=== PATIENT | female | born 1995 | race Caucasian/White ===

== ENCOUNTER 2017-07-24 23:02 | Emergency (ER) | payer OTHER, SELFPAY ==
[2017-07-24 23:12] VITALS: BP 130/66; PULSE 87; RESP 20; TEMP 36.8; O2SAT 99; BMI 28.8
--- NOTE | 2017-07-24 23:29 | PC.NURSE ---
heart tones 148bpm.
[2017-07-24 23:30] LABS: Microscopic, Urine URINE MICROSCOPIC (MICROSCOPIC)
[2017-07-24 23:34] LABS: Appearance,Urine CLEAR (Clear); Bilirubin,Urine Negative (Negative); Blood, Urine TRACE-I (Negative); Color,Urine YELLOW (Yellow); Glucose,Urine (UA) Negative (Negative); Ketones,Urine TRACE (Negative); Leukocyte Esterase,Urine Negative (Negative); Nitrate,Urine Negative (Negative); Protein,Urine Negative (Negative); Specific Gravity, Urine >= 1.030 (1.005-1.030); Urobilinogen,Urine 0.2 EU/dl (0.2)
[2017-07-24 23:35] LABS: Basophils % 0.2 % (0.1-2.0); Eosinophils # 0.1 K/mm3 (0.0-0.4); Eosinophils % 1.3 % (0.1-12.0); Hemoglobin 11.8 g/dL (12.2-16.2); Lymphocytes # 2.2 K/mm3 (0.7-4.5); Lymphocytes % 21.8 K/mm3 (10-50); Mean Corpuscular HGB Conc 33.6 g/dL (31.8-35.4); Mean Corpuscular Hemoglobin 28.5 pg (27.0-31.2); Mean Corpuscular Volume 84.6 fl (81-99); Mean Platelet Volume 8.7 fl (7.4-10.4); Monocytes # 0.6 K/mm3 (0.1-1.0); Monocytes % 5.8 % (1.7-9.3); Neutrophils % 70.9 % (37.0-80.0); Platelet Count 260 K/mm3 (142-424); Red Blood Count 4.13 M/mm3 (4.20-5.40); Red Cell Distribution Width 13.5 % (11.5-17.5); White Blood Count 9.9 K/mm3 (4.5-13.0)
[2017-07-25 00:07] LABS: Alanine Aminotransferase 26 U/L (12-78); Albumin Level 2.9 gm/dL (3.4-5.0); Albumin/Globulin Ratio 0.7 (1.1-1.8); Alkaline Phosphatase 61 U/L (46-116); Anion Gap 13.8 mEq/L (5-15); Aspartate Amino Transferase 17 U/L (15-37); Bilirubin,Total 0.2 mg/dL (0.2-1.0); Blood Urea Nitrogen 6 mg/dL (7-18); Calcium 8.9 mg/dL (8.5-10.1); Carbon Dioxide 22 mmol/L (21.0-32.0); Chloride 103 mmol/L (98-107); Creatinine Clearance Estimated 209 mL/min (0-300); Creatinine,Serum 0.52 mg/dL (0.55-1.02); Estimated Glomerular Filt Rate 152 ml/min (>60); GFR (African American) 184 ML/MIN (>60); Globulin 4.3 gm/dl (1.3-3.2); Glucose 91 mg/dL (74-106); Potassium 3.8 mmoL/L (3.5-5.1); Sodium 135 mmol/L (136-145); Total Protein,Serum 7.2 gm/dL (6.4-8.2)
[2017-07-25 00:13] LABS: HCG,Quantitative 23028 mIU/mL
--- NOTE | 2017-07-25 00:53 | HMH.EDPREG ---
ED Disposition Clinical Impression: Qualifiers: Weeks of gestation: 19 weeks Qualified Code(s): Z3A.19 - 19 weeks gestation of Disposition: Home, Self-Care Condition on Discharge: Good Instructions: DI for -- Discomforts and Remedies Additional Instructions: call ob this am - Critical Care Critical Care Time: No Attestation: On 07/24/17, the high probability of a clinically significant, sudden or life threatening deterioration of the following system(s) required my full and direct attention, intervention and personal management. The time I documented below is in addition to time spent performing reported procedures but includes the following listed in this critical care notation. Medical Decision Making - Medical Records Medical records reviewed: Yes: I reviewed the patient's medical records. - Rubén Inquiry Pt receiving controlled substance: No Vital Signs: 07/24/17 23:12 Temperature 98.2 F Temperature Source Oral Pulse Rate [Right Radial] 87 Respiratory Rate 20 Blood Pressure [Right Arm] 130/66 Blood Pressure Mean [Right Arm] 87 02 Sat by Pulse Oximetry 99 - Lab Data Lab results reviewed: Yes: I reviewed the patient's lab results. Lab Results 07/24/17 23:10: Urine Color Yellow, Urine Appearance Clear, Urine pH 6.0, Ur Specific [place] >= 1.030, Urine Protein Negative, Urine Glucose (UA) Negative, Urine Ketones Trace, Urine Blood Trace-i, Urine Nitrate Negative, Urine Bilirubin Negative, Urine Urobilinogen 0.2, Ur Leukocyte Esterase Negative 07/24/17 23:10: WBC 9.9, RBC 4.13 L, Hgb 11.8 L, Hct 35.0 L, MCV 84.6, MCH 28.5, MCHC 33.6, RDW 13.5, Plt Count 260, MPV 8.7, Neut % (Auto) 70.9, Lymph % (Auto) 21.8, [place] % (Auto) 5.8, Eos % (Auto) 1.3, Baso % (Auto) 0.2, Neut # (Auto) 7.0, Lymph # (Auto) 2.2, [place] # (Auto) 0.6, Eos # (Auto) 0.1, Baso # (Auto) 0.0 07/24/17 23:10: Sodium 135 L, Potassium 3.8, Chloride 103, Carbon Dioxide 22, Anion Gap 13.8, BUN 6 L, Creatinine 0.52 L, Estimated Creat Clear 209, Estimated GFR 152, Est GFR ( Amer) 184, Glucose 91, Calcium 8.9, Total Bilirubin 0.2, AST 17, ALT 26, Alkaline Phosphatase 61, Total Protein 7.2, Albumin 2.9 L, Globulin 4.3 H, Albumin/Globulin Ratio 0.7 L, HCG, Quant [id number] H 07/24/17 23:50: Blood Type A Positive Result diagrams: 07/24/17 23:10 07/24/17 23:10 Orders (Tests/Meds): ORDERS Category Date Time Status Urinalysis and Microscopic Stat Lab 07/24/17 23:10 Results - Physician Consults Physician Consulted: candis Reason -: Pt condition HPI - General Chief complaint: Back Pain/Injury Stated complaint: 19 WK Preg, Pain in right and back Time Seen by Provider: 07/25/17 00:53 Mode of Arrival: Family Vehicle Limitations: No Limitations Description of Symptoms (Recalled from ER Triage Doc. by RN): presents with c/o bilateral side and mid lower back pains. pt states she is 19 weeks and she hasnt felt the baby move very much. pt sees dr. gonzalez and has an ultrasound scheduled in a few days. pt states she just wants to check on her baby. denies dysuria, n/v/d. - History of Present Illness HPI Narrative: pt with bilat abd pain with no vag bleeding which started in the last few days MD Complaint: abdominal pain Onset (ago): day(s) Consistency: intermittent Location: pelvis, abdomen Severity: moderate Vaginal discharge: none Vaginal bleeding: none : yes Date of Last Menstrual Period: unknown care: followed by OB - Related Data : 2 Para: 0 Ab: 1 Allergies Allergy/AdvReac Type Severity Reaction Status Date / Time Penicillins Allergy Verified 07/24/17 23:18 [facility] History I have reviewed the patient's past medical history: Yes Medical History: Denies:: Cancer, Diabetes Mellitus Type 1, Diabetes Mellitus Type 2, MRSA Amputation: No Fractures: No - Social History Smoking Status: Former smoker Alcohol Intake: never - Psy
--- NOTE | 2017-07-25 01:00 | ED_ITS ---
ED Disposition Clinical Impression: Qualifiers: Weeks of gestation: 19 weeks Qualified Code(s): Z3A.19 - 19 weeks gestation of Disposition: Home, Self-Care Condition on Discharge: Good Instructions: DI for -- Discomforts and Remedies Additional Instructions: call ob this am - Critical Care Critical Care Time: No Attestation: On 07/24/17, the high probability of a clinically significant, sudden or life threatening deterioration of the following system(s) required my full and direct attention, intervention and personal management. The time I documented below is in addition to time spent performing reported procedures but includes the following listed in this critical care notation. Medical Decision Making - Medical Records Medical records reviewed: Yes: I reviewed the patient's medical records. - Rubén Inquiry Pt receiving controlled substance: No Vital Signs: 07/24/17 23:12 Temperature 98.2 F Temperature Source Oral Pulse Rate [Right Radial] 87 Respiratory Rate 20 Blood Pressure [Right Arm] 130/66 Blood Pressure Mean [Right Arm] 87 02 Sat by Pulse Oximetry 99 - Lab Data Lab results reviewed: Yes: I reviewed the patient's lab results. Lab Results 07/24/17 23:10: Urine Color Yellow, Urine Appearance Clear, Urine pH 6.0, Ur Specific [place] >= 1.030, Urine Protein Negative, Urine Glucose (UA) Negative, Urine Ketones Trace, Urine Blood Trace-i, Urine Nitrate Negative, Urine Bilirubin Negative, Urine Urobilinogen 0.2, Ur Leukocyte Esterase Negative 07/24/17 23:10: WBC 9.9, RBC 4.13 L, Hgb 11.8 L, Hct 35.0 L, MCV 84.6, MCH 28.5 , MCHC 33.6, RDW 13.5, Plt Count 260, MPV 8.7, Neut % (Auto) 70.9, Lymph % (Auto ) 21.8, [place] % (Auto) 5.8, Eos % (Auto) 1.3, Baso % (Auto) 0.2, Neut # (Auto) 7.0, Lymph # (Auto) 2.2, [place] # (Auto) 0.6, Eos # (Auto) 0.1, Baso # (Auto) 0.0 07/24/17 23:10: Sodium 135 L, Potassium 3.8, Chloride 103, Carbon Dioxide 22, Anion Gap 13.8, BUN 6 L, Creatinine 0.52 L, Estimated Creat Clear 209, Estimated GFR 152, Est GFR ( Amer) 184, Glucose 91, Calcium 8.9, Total Bilirubin 0.2, AST 17, ALT 26, Alkaline Phosphatase 61, Total Protein 7.2, Albumin 2.9 L, Globulin 4.3 H, Albumin/Globulin Ratio 0.7 L, HCG, Quant [id number] H 07/24/17 23:50: Blood Type A Positive Result diagrams: 07/24/17 23:10 07/24/17 23:10 Orders (Tests/Meds): ORDERS Category Date Time Status Urinalysis and Microscopic Stat Lab 07/24/17 23:10 Results - Physician Consults Physician Consulted: candis Reason -: Pt condition HPI - General Chief complaint: Back Pain/Injury Stated complaint: 19 WK Preg, Pain in right and back Time Seen by Provider: 07/25/17 00:53 Mode of Arrival: Family Vehicle Limitations: No Limitations Description of Symptoms (Recalled from ER Triage Doc. by RN): presents with c/o bilateral side and mid lower back pains. pt states she is 19 weeks and she hasnt felt the baby move very much. pt sees dr. gonzalez and has an ultrasound scheduled in a few days. pt states she just wants to check on her baby. denies dysuria, n/v/d. - History of Present Illness HPI Narrative: pt with bilat abd pain with no vag bleeding which started in the last few days MD Complaint: abdominal pain Onset (ago): day(s) Consistency: intermittent Location: pelvis, abdomen Severity: moderate Vaginal discharge: none Vaginal bleeding: none : yes
[2017-07-25 01:13] LABS: Bacteria,Urine Trace /lpf; RBC,Urine Occasional #/hpf (0-3); WBC,Urine Occasional #/hpf (0-3)
[2017-07-25 01:29] VITALS: BP 121/70; PULSE 78; RESP 20; TEMP 37.2; O2SAT 99
== END 2017-07-25 01:29 | disposition home or self-care (01) ==
PROVIDERS: Emergency Provider Emergency Medicine
DX: M54.5 Low back pain (principal); Z3A.19 19 weeks gestation of pregnancy; Z87.891 Personal history of nicotine dependence
CPT/HCPCS: 80053; 81001; 84702; 85025; 86900; 86901; 99282

== ENCOUNTER 2017-09-19 20:25 | Outpatient (CLI) | payer OTHER, SELFPAY ==
[2017-09-19 20:37] VITALS: BP 106/59; PULSE 98; RESP 18; TEMP 37.1; O2SAT 99; BMI 30.7
[2017-09-19 21:10] LABS: Microscopic, Urine URINE MICROSCOPIC (MICROSCOPIC)
[2017-09-19 21:13] LABS: Appearance,Urine SL CLOUDY (Clear); Bilirubin,Urine Negative (Negative); Blood, Urine Negative (Negative); Color,Urine YELLOW (Yellow); Glucose,Urine (UA) Negative (Negative); Ketones,Urine Negative (Negative); Leukocyte Esterase,Urine Negative (Negative); Nitrate,Urine Negative (Negative); Protein,Urine Negative (Negative); Specific Gravity, Urine 1.015 (1.005-1.030); Urobilinogen,Urine 0.2 EU/dl (0.2)
[2017-09-19 21:23] LABS: Amphetamine/Metha Screen,Urine Negative ng/mL (<1000); Barbiturates Screen,Urine Negative ng/mL (<200); Benzodiazepines Screen,Urine Negative ng/mL (200); Cannabinoid Screen,Urine Negative ng/mL (<50); Cocaine Screen,Urine Negative ng/g (<300); Methadone Screen,Urine Negative ng/mL (<300); Opiate Screen,Urine Negative ng/mL (<300); Phencyclidine Screen,Urine Negative ng/mL (<25)
[2017-09-19 21:34] LABS: RBC,Urine Occasional #/hpf (0-3); WBC,Urine Occasional #/hpf (0-3)
[2017-09-19 21:35] LABS: Amorphous Sediment,Urine 2+ /lpf; Bacteria,Urine 1+ /lpf; Hyaline Casts,Urine Occasional #/lpf (0); Squamous Epithelial Cell,Urine TNTC #/hpf (0-5)
== END 2017-09-19 22:07 | disposition home or self-care (01) ==
LOC: OBOUT 20:28 → OB 20:30
PROVIDERS: Visit Provider Obstetrics & Gynecology
DX: O26.892 Other specified pregnancy related conditions, second trimester (principal); Z3A.27 27 weeks gestation of pregnancy
CPT/HCPCS: 59025; 80305; 81001

== ENCOUNTER 2017-10-15 21:30 | Outpatient (CLI) | payer OTHER, SELFPAY ==
[2017-10-15 22:12] VITALS: BP 117/60; PULSE 105; RESP 17; TEMP 36.8; O2SAT 97; BMI 31.2
[2017-10-15 22:27] LABS: Microscopic, Urine URINE MICROSCOPIC (MICROSCOPIC)
[2017-10-15 22:30] LABS: Appearance,Urine CLEAR (Clear); Bilirubin,Urine Negative (Negative); Blood, Urine Negative (Negative); Color,Urine YELLOW (Yellow); Glucose,Urine (UA) Negative (Negative); Ketones,Urine Negative (Negative); Leukocyte Esterase,Urine TRACE (Negative); Nitrate,Urine Negative (Negative); Protein,Urine TRACE (Negative); Specific Gravity, Urine >= 1.030 (1.005-1.030); Urobilinogen,Urine 0.2 EU/dl (0.2)
[2017-10-15 22:38] LABS: Bacteria,Urine 1+ /lpf; Calcium Oxalate Crystals,Urine 1+ /lpf; Mucus,Urine 1+ /lpf; Squamous Epithelial Cell,Urine TNTC #/hpf (0-5)
[2017-10-15 22:44] LABS: Amphetamine/Metha Screen,Urine Negative ng/mL (<1000); Barbiturates Screen,Urine Negative ng/mL (<200); Benzodiazepines Screen,Urine Negative ng/mL (200); Cannabinoid Screen,Urine Negative ng/mL (<50); Cocaine Screen,Urine Negative ng/g (<300); Methadone Screen,Urine Negative ng/mL (<300); Opiate Screen,Urine Negative ng/mL (<300); Phencyclidine Screen,Urine Negative ng/mL (<25)
== END 2017-10-15 23:00 | disposition home or self-care (01) ==
LOC: OBOUT 21:32 → OB 21:32
PROVIDERS: Visit Provider Obstetrics & Gynecology
DX: O46.93 Antepartum hemorrhage, unspecified, third trimester (principal); Z3A.31 31 weeks gestation of pregnancy
CPT/HCPCS: 59025; 80305; 81001

== ENCOUNTER 2017-10-19 17:05 | Observation (INO) ==
[2017-10-19 17:41] VITALS: BP 118/58
[2017-10-19 20:48] LABS: Amphetamine/Metha Screen,Urine Negative ng/mL (<1000); Barbiturates Screen,Urine Negative ng/mL (<200); Benzodiazepines Screen,Urine Negative ng/mL (<200); Cannabinoid Screen,Urine Negative ng/mL (<50); Cocaine Screen,Urine Negative ng/mL (<300); Methadone Screen,Urine Negative ng/mL (<300); Opiate Screen,Urine Negative ng/mL (<300); Phencyclidine Screen,Urine Negative ng/mL (<25)
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
== END 2017-10-19 23:55 | disposition home or self-care (01) ==
LOC: OB 17:05 → OBOUT 17:05 → OB 17:13
PROVIDERS: ADMIT Obstetrics & Gynecology; ATTEND Obstetrics & Gynecology

== ENCOUNTER 2019-09-06 12:11 | Emergency (ER) | payer OTHER, SELFPAY ==
[2019-09-06 12:18] VITALS: BP 126/78; PULSE 78; RESP 18; TEMP 36.8; O2SAT 96; BMI 31.8
--- NOTE | 2019-09-06 12:40 | PC.NURSE ---
HEART TONES AUSCULTATED AT 134 BPM
--- NOTE | 2019-09-06 12:45 | US_ITS ---
PROCEDURE: US OB >= 14 WEEKS FETUS Patient Age:23Y CLINICAL INDICATION: , ABD PAIN . young child jumped on her stomach today with abdominal pain and cramping. COMPARISON: No previous ultrasound this . There is a previous OBBIO US OB biophysical profile from 10/19/2017 FINDINGS: . Complete ultrasound survey and dating evaluation performed by technologist MW Single viable intrauterine gestation. Active fetus, currently cephalic position. Placenta: Anteriorplacenta grade 1.. No previa. No abruption evident There is satisfactory amount amniotic fluid. The cervix difficult to visualize but appears adequate. Cervix closed and measuring at least 3 cm up to possibly 4.3 cm in length. Complete survey performed and was unremarkable on the submitted images as in PACS. No discrete anomalies identified on survey imaging by technologist. Active fetus. Three-vessel cord with satisfactory umbilical cord insertion. 4- chamber heart noted. Survey of brain & ventricles Unremarkable. Face and neck survey unremarkable. Diaphragm and chest views unremarkable. Abdomen: Both kidneys noted and unremarkable. Stomach noted and satisfactory.. Spine: Survey of the spine satisfactory with no anomalies identified nor imaged. Both arms and legs noted. Amniotic Fluid: Adequate. Maternal adnexa: No significant findings. Measurements: The Average ultrasound age 19weeks 2days. Gestational Age 18 weeks 3 day days based on LMP 04/30/2019 the clinical due date 02/04/2020) Estimated due date by ultrasound age 1001/29/2020. Estimated weight 297ggrams. +/-43 g BPD = 19 week 1 day OFD = 18 week 4 day HC = 18 week 1 day AC = 19 week 6 day FL = 19 week 5 day Growth Percentile= 58Percent% Heart Rate = 161bpm . HC/AC is 1.04 CI is 0.83 (70-86 percent) FL/BPD is 0.72 = 72 percent the FL/AC is 0.21 IMPRESSION: Single viable active intrauterine gestation. Currently cephalic position. 19week 2 days Average Ultrasound Age. Anterior placenta, grade 1.-No previa no abruption. Overview anatomy survey today was unremarkable &WNL . No acute findings Dictated by: Rashid Gonzalez MD 09/06/2019 15:11 Electronically signed by Rashid Gonzalez MD in [place] 09/06/2019 15:11
--- NOTE | 2019-09-06 13:13 | HMH.EDPREG ---
ED Disposition Clinical Impression: Abdominal pain during in second trimester Disposition: Home, Self-Care Condition on Discharge: Good Instructions: DI for Abdominal Pain -- Early Referrals: Provider,Referral, [Primary Care Provider] - - Critical Care Critical Care Time: No Attestation: On 09/06/19, the high probability of a clinically significant, sudden or life threatening deterioration of the following system(s) required my full and direct attention, intervention and personal management. The time I documented below is in addition to time spent performing reported procedures but includes the following listed in this critical care notation. Medical Decision Making - Medical Records Medical records reviewed: Yes: I reviewed the patient's medical records. - Rubén Inquiry Pt receiving controlled substance: No Vital Signs: 09/06/19 12:18 Temperature 98.2 F Temperature Source Oral Pulse Rate [Right Radial] 78 Respiratory Rate 18 Blood Pressure [Right Arm] 126/78 Blood Pressure Mean [Right Arm] 94 Blood Pressure Source [Right Arm] Automatic Cuff Blood Pressure Position [Right Arm] Sitting 02 Sat by Pulse Oximetry 96 Oxygen Delivery Method Room Air - Lab Data Lab results reviewed: Yes: I reviewed the patient's lab results. Orders (Tests/Meds): ORDERS Category Date Time Status US OB transvaginal Stat Ultrasound 09/06/19 12:45 Ordered - US Data US Images: Abdomen Preliminary Findings: Normal/NAD HPI - General Chief complaint: OB/Uterine Contractions Stated complaint: 18 wks and cramping Time Seen by Provider: 09/06/19 13:13 Mode of Arrival: Ambulatory Source of Information: Patient Limitations: No Limitations Description of Symptoms (Recalled from ER Triage Doc. by RN): PT STATES THAT SHE IS 18 WEEKS WITH HER 3RD CHILD. PT C/O PERSISTENT ABD PAIN AFTER HER 3 YEAR OLD JUMPED ON HER STOMACH YESTERDAY. PT DENIES ANY VAGINAL BLEEDING. - History of Present Illness HPI Narrative: 23-year-old female presents at a G3, P2 at roughly 18 weeks and 2 days today. She states that she has some lower abdominal pain or abdominal soreness secondary to after having her 1-year-old jumped on her abdomen yesterday. She was worried that the baby may be hurt. Patient denies any loss of fluid. Patient denies any dysuria. Patient denies any bleeding or spotting. And patient states she does feel the baby move. heart tones are at 146. : yes Date of Last Menstrual Period: 18 WEEKS. HEATHER 01/28/20 - Related Data Para: 2 Home Medications Medication Instructions Recorded Confirmed Iron,Carb/Vit C/Vit B12/Folic 1 each PO DAILY 09/19/17 04/19/18 [Iron 100 Plus Tablet] Pnv95/Iron Fum/Folic Acid 1 each PO DAILY 09/19/17 04/19/18 [ Tablet] Famotidine [Pepcid 20mg Tablet] 20 mg PO BID 04/19/18 04/19/18 Pantoprazole Sodium [Protonix 20mg 1 tab PO DAILY 04/19/18 04/19/18 Tab] Previous Rx's Medication Instructions Recorded Triamcinolone Acetonide [Kenalog 1 applic TOPICAL TID PRN #30 12/30/17 0.1% cream 30gm tube] cream..g. Allergies Allergy/AdvReac Type Severity Reaction Status Date / Time Penicillins Allergy Verified 04/02/18 08:47 [facility] History - Hepatitis A Screen Drug use history?: No High risk sexual behaviors?: No History of sexually transmitted infection?: No Currently employed?: No Childcare worker?: No Do you have indoor plumbing?: Yes Do you have electricity?: Yes Attestation statement:: This patient has been screened for Hepatitis A risk factors. I have reviewed the patient's past medical history: Yes Medical History: Denies:: Cancer, Diabetes Mellitus Type 1, Diabetes Mellitus Type 2, Hypertension, MRSA Other Surgeries: No: Amputation: No Fractures: No - Social History Smoking Status: Never smoker Alcohol Intake: never Occupational Status: employed Para: 2 ROS Obtained:
--- NOTE | 2019-09-06 13:45 | PC.NURSE ---
PT HAS RETURNED FROM [facility]
[2019-09-06 13:49] VITALS: BP 118/72; PULSE 76; RESP 18; TEMP 36.9; O2SAT 97
== END 2019-09-06 13:50 | disposition home or self-care (01) ==
PROVIDERS: Emergency Provider Family Medicine
DX: S30.1XXA Contusion of abdominal wall, initial encounter (principal); W50.0XXA Accidental hit or strike by another person, initial encounter; Y92.019 Unspecified place in single-family (private) house as the place of occurrence of the external cause; Z3A.18 18 weeks gestation of pregnancy
CPT/HCPCS: 76805; 99282

== ENCOUNTER 2020-10-18 01:04 | Emergency (ER) | payer OTHER, SELFPAY ==
[2020-10-18 01:15] VITALS: BP 122/78; PULSE 86; RESP 16; TEMP 36.8; O2SAT 98; BMI 29.2
[2020-10-18 01:26] LABS: Microscopic, Urine URINE MICROSCOPIC (MICROSCOPIC)
[2020-10-18 01:27] LABS: Appearance,Urine CLOUDY (Clear); Bilirubin,Urine Negative (Negative); Blood, Urine Negative (Negative); Color,Urine YELLOW (Yellow); Glucose,Urine (UA) Negative (Negative); Ketones,Urine Negative (Negative); Leukocyte Esterase,Urine Negative (Negative); Nitrate,Urine Negative (Negative); PH,Urine 5.5 (5.0-8.5); Protein,Urine TRACE (Negative); Specific Gravity, Urine >= 1.030 (1.005-1.030)
[2020-10-18 01:29] LABS: Urine Pregnancy, HCG Qual. Negative (Negative)
[2020-10-18 01:30] VITALS: BP 107/71; PULSE 76; O2SAT 98
[2020-10-18 01:37] LABS: Bacteria,Urine 4+ /lpf; Mucus,Urine 3+ /lpf; Squamous Epithelial Cell,Urine 20-50 #/hpf (0-5)
[2020-10-18 01:43] LABS: Alanine Aminotransferase 54 U/L (12-78); Albumin Level 4.4 g/dl (3.5-5.0); Albumin/Globulin Ratio 1.3 (1.1-1.8); Alkaline Phosphatase 66 U/L (38-126); Anion Gap 14.7 mEq/L (5-15); Aspartate Amino Transferase 40 U/L (14-36); Basophils % 0.6 % (0.1-2.0); Bilirubin,Total 0.7 mg/dl (0.2-1.3); Blood Urea Nitrogen 9 mg/dl (7-17); Carbon Dioxide 26 mmol/L (22.0-30.0); Chloride 101 mmol/L (98-107); Creatinine Clearance Estimated 185 mL/min (50-200); Eosinophils # 0.1 K/mm3 (0.0-0.4); Eosinophils % 2.1 % (0.1-12.0); Estimated Glomerular Filt Rate 125 ml/min (>60); GFR (African American) 151 ML/MIN (>60); Globulin 3.3 g/dL (1.3-3.2); Glucose 92 mg/dl (74-100); Hematocrit 37.2 % (37.0-47.0); Hemoglobin 12.4 g/dL (12.2-16.2); Lipase 115 U/L (23-300); Lymphocytes # 2.3 K/mm3 (0.7-4.5); Lymphocytes % 41.9 % (10-50); Mean Corpuscular HGB Conc 33.4 g/dL (31.8-35.4); Mean Corpuscular Hemoglobin 26.5 pg (27.0-31.2); Mean Corpuscular Volume 79.3 fl (81-99); Mean Platelet Volume 8.7 fl (7.4-10.4); Monocytes # 0.4 K/mm3 (0.1-1.0); Monocytes % 6.4 % (1.7-9.3); Neutrophils # 2.6 K/mm3 (1.8-7.8); Platelet Count 246 K/mm3 (142-424); Potassium 3.7 mmoL/L (3.5-5.1); Red Cell Distribution Width 13.7 % (11.5-17.5); Sodium 138 mmol/L (136-145); Total Protein,Serum 7.7 g/dl (6.3-8.2); White Blood Count 5.4 K/mm3 (4.8-10.8)
--- NOTE | 2020-10-18 01:51 | HMH.EDGENADL ---
ED Disposition Clinical Impression: Mesenteric adenitis, Gastroenteritis Disposition: Home, Self-Care Condition on Discharge: Fair Instructions: DI for Acute Abdominal Pain, DI for Mesenteric Adenitis-Adult Prescriptions: ondansetron HCL [Ondansetron 4mg tab*] 4 mg PO Q6 PRN #12 tab PRN Reason: Nausea Transmission Status: Pending to [id number] Referrals: Provider,Referral, MD [Primary Care Provider] - Time of Disposition: 03:48 - Critical Care Critical Care Time: No Attestation: On 10/18/20, the high probability of a clinically significant, sudden or life threatening deterioration of the following system(s) required my full and direct attention, intervention and personal management. The time I documented below is in addition to time spent performing reported procedures but includes the following listed in this critical care notation. Medical Decision Making - Medical Records Medical records reviewed: Yes: I reviewed the patient's medical records. - Rubén Inquiry Pt receiving controlled substance: No Vital Signs: 10/18/20 01:15 10/18/20 01:30 10/18/20 02:00 Temperature 98.2 F Temperature Source Oral Pulse Rate 76 67 Pulse Rate [Right Brachial] 86 Respiratory Rate 16 Blood Pressure 107/71 L 101/64 L Blood Pressure [Right Arm] 122/78 Blood Pressure Mean [Right Arm] 92 Blood Pressure Source [Right Arm] Automatic Cuff 02 Sat by Pulse Oximetry 98 98 98 Oxygen Delivery Method Room Air Room Air 10/18/20 02:30 Temperature Temperature Source Pulse Rate 65 Pulse Rate [Right Brachial] Respiratory Rate Blood Pressure 106/66 L Blood Pressure [Right Arm] Blood Pressure Mean [Right Arm] Blood Pressure Source [Right Arm] 02 Sat by Pulse Oximetry 99 Oxygen Delivery Method - Lab Data Lab Results 10/18/20 01:10: Urine Color Yellow, Urine Appearance Cloudy, Urine pH 5.5, Ur Specific [place] >= 1.030, Urine Protein Trace, Urine Glucose (UA) Negative, Urine Ketones Negative, Urine Blood Negative, Urine Nitrate Negative, Urine Bilirubin Negative, Urine Urobilinogen 1.0, Ur Leukocyte Esterase Negative, Urine WBC 5-10, Ur Squamous Epith Cells 20-50, Urine Bacteria 4+, Urine Mucus 3+ 10/18/20 01:10: Urine HCG, Qual Negative 10/18/20 01:28: WBC 5.4, RBC 4.70, Hgb 12.4, Hct 37.2, MCV 79.3 L, MCH 26.5 L, MCHC 33.4, RDW 13.7, Plt Count 246, MPV 8.7, Neut % (Auto) 49.0, Lymph % (Auto) 41.9, [place] % (Auto) 6.4, Eos % (Auto) 2.1, Baso % (Auto) 0.6, Neut # (Auto) 2.6, Lymph # (Auto) 2.3, [place] # (Auto) 0.4, Eos # (Auto) 0.1, Baso # (Auto) 0.0 10/18/20 01:28: Sodium 138, Potassium 3.7, Chloride 101, Carbon Dioxide 26, Anion Gap 14.7, BUN 9, Creatinine 0.60, Estimated Creat Clear 185, Estimated GFR 125, Est GFR ( Amer) 151, Glucose 92, Calcium 9.0, Total Bilirubin 0.7, AST 40 H, ALT 54, Alkaline Phosphatase 66, Total Protein 7.7, Albumin 4.4, Globulin 3.3 H, Albumin/Globulin Ratio 1.3, Lipase 115 Result diagrams: 10/18/20 01:28 10/18/20 01:28 Orders (Tests/Meds): ORDERS Category Date Time Status Urine Culture Stat Micro 10/18/20 01:10 Received Medical Decision Narrative: In summary this is a 24-year-old female presenting to the emergency department with right lower quadrant abdominal pain. Patient clinically stable on arrival. Vital signs within normal limits. Concern for ovarian cyst, torsion, intrauterine , ectopic , cystitis. Will obtain CBC, CMP, urinalysis, urine hCG. Urine negative. Urinalysis shows bacteria, no leukoesterase or nitrites. Patient is sexually active with her only. Denies discharge or concern for sexually transmitted infections. Other laboratory results reassuring. CT scan of the abdomen and pelvis shows enlarged lymph nodes. Consistent with mesenteric adenitis. No acute appendicitis. No ovarian pathology. On reassessment patient says she is feeling somewhat better. Counseled on CT findings. Recommended monito
--- NOTE | 2020-10-18 01:53 | CT_ITS ---
PROCEDURE INFORMATION: Exam: CT Abdomen And Pelvis Without Contrast Exam date and time: 10/18/2020 1:53 AM Age: 24 years old Clinical indication: Abdominal pain; Prior surgery; Surgery date: 6+ months; Surgery type: Gallbladder and 3 csections; Patient HX: Generalized abd pain with nausea; Additional info: Abdominal pain, rlq TECHNIQUE: Imaging protocol: Computed tomography of the abdomen and pelvis without contrast. Radiation optimization: All CT scans at this facility use at least one of these dose optimization techniques: automated exposure control; mA and/or kV adjustment per patient size (includes targeted exams where dose is matched to clinical indication); or iterative reconstruction. COMPARISON: US OB >= 14 WEEKS FETUS 09/06/2019 1:10 PM FINDINGS: Lungs: The visualized lung bases are unremarkable. Liver: Unremarkable noncontrast appearance. Gallbladder and bile ducts: Cholecystectomy. There is a small amount of pneumobilia, likely related to prior instrumentation. No biliary dilation. Pancreas: Unremarkable non-contrast appearance of the pancreas. Spleen: Normal. No splenomegaly. Adrenal glands: Normal. No mass. Kidneys and ureters: Unremarkable noncontrast appearance. No nephrolithiasis. No hydronephrosis. Stomach and bowel: No small bowel dilation or obstruction. Moderate amount of solid stool is present throughout the colon. Appendix: Normal appendix. Intraperitoneal space: No pneumoperitoneum. No ascites. Vasculature: Unremarkable. No abdominal aortic aneurysm. Lymph nodes: There are several borderline to mildly enlarged mesenteric lymph nodes, most conspicuous in the right lower quadrant, measuring up to 1.1 cm in short axis. Urinary bladder: Decompressed. No evidence of wall thickening. Reproductive: Left ovarian cyst measuring 2.3 x 2.7 x 2.1 cm, which appears homogeneous and is likely physiologic/benign. Bones/joints: Unremarkable. No acute fracture. Soft tissues: Small umbilical hernia containing fat. IMPRESSION: 1. Several borderline to mildly enlarged mesenteric lymph nodes, greatest in the right lower quadrant, suggesting mesenteric adenitis. 2. Normal appendix.
[2020-10-18 02:00] VITALS: BP 101/64; PULSE 67; O2SAT 98
[2020-10-18 02:30] VITALS: BP 106/66; PULSE 65; O2SAT 99
[2020-10-18 03:56] VITALS: BP 104/73; PULSE 67; RESP 16; TEMP 36.8; O2SAT 98
== END 2020-10-18 03:58 | disposition home or self-care (01) ==
PROVIDERS: Emergency Provider Emergency Medicine
DX: I88.0 Nonspecific mesenteric lymphadenitis (principal); F17.290 Nicotine dependence, other tobacco product, uncomplicated; K52.9 Noninfective gastroenteritis and colitis, unspecified
CPT/HCPCS: 74176; 80053; 81001; 81025; 83690; 85025; 87086; 99283

== ENCOUNTER 2021-12-05 22:27 | Emergency (ER) | payer OTHER, SELFPAY ==
[2021-12-05 22:28] VITALS: BP 129/81; PULSE 67; RESP 16; TEMP 36.9; O2SAT 98; BMI 28.1
[2021-12-05 23:27] LABS: Microscopic, Urine URINE MICROSCOPIC (MICROSCOPIC)
[2021-12-05 23:37] LABS: Appearance,Urine CLOUDY (Clear); Bilirubin,Urine Negative (Negative); Blood, Urine 3+ (Negative); Color,Urine YELLOW (Yellow); Glucose,Urine (UA) Negative (Negative); Ketones,Urine TRACE (Negative); Leukocyte Esterase,Urine Negative (Negative); Nitrate,Urine Negative (Negative); PH,Urine 7.5 (5.0-8.5); Protein,Urine TRACE (Negative); Specific Gravity, Urine 1.015 (1.005-1.030)
[2021-12-05 23:40] LABS: Urine Pregnancy, HCG Qual. Negative (Negative)
--- NOTE | 2021-12-05 23:55 | [facility].EDNVD ---
ED Disposition Clinical Impression: Ovarian cyst Qualifiers: Laterality: left Qualified Code(s): N83.202 - Unspecified ovarian cyst, left side Disposition: Home, Self-Care Condition on Discharge: Good Instructions: DI for Acute Abdominal Pain, DI for Ovarian Cyst Additional Instructions: fluids and see pcp and pharmacy services representative for follow up Referrals: Provider,Melvin, [Primary Care Provider] - Byron Logan MD [Staff Physician] - - Critical Care Critical Care Time: No Attestation: On 12/05/21, the high probability of a clinically significant, sudden or life threatening deterioration of the following system(s) required my full and direct attention, intervention and personal management. The time I documented below is in addition to time spent performing reported procedures but includes the following listed in this critical care notation. Medical Decision Making - Medical Records Medical records reviewed: Yes: I reviewed the patient's medical records. - Rubén Inquiry Pt receiving controlled substance: No Vital Signs: 12/05/21 22:28 Temperature 98.4 F Temperature Source Oral Pulse Rate [Right] 67 Respiratory Rate 16 Blood Pressure [Right Arm] 129/81 Blood Pressure Mean [Right Arm] 97 02 Sat by Pulse Oximetry 98 Oxygen Delivery Method Room Air - Lab Data Lab results reviewed: Yes: I reviewed the patient's lab results. Lab Results 12/05/21 00:01: SARS-CoV-2 (PCR) Not detected, Influenza A Untype (PCR) Not detected, Influenza Type B (PCR) Not detected 12/05/21 23:10: Urine Color Yellow, Urine Appearance Cloudy, Urine pH 7.5, Ur Specific [place] 1.015, Urine Protein Trace, Urine Glucose (UA) Negative, Urine Ketones Trace, Urine Blood 3+, Urine Nitrate Negative, Urine Bilirubin Negative, Urine Urobilinogen 1.0, Ur Leukocyte Esterase Negative, Urine RBC 50-100, Urine WBC Occasional, Ur Squamous Epith Cells Occasional, Amorphous Sediment 2+, Urine Bacteria 2+ 12/05/21 23:10: Urine HCG, Qual Negative 12/05/21 23:51: WBC 6.4, RBC 4.35, Hgb 12.1 L, Hct 36.6 L, MCV 84.2, MCH 27.8, MCHC 33.1, RDW 14.1, Plt Count 254, MPV 9.5, Neut % (Auto) 47.7, Lymph % (Auto) 42.0, [place] % (Auto) 5.9, Eos % (Auto) 3.3, Baso % (Auto) 1.1, Neut # (Auto) 3.1, Lymph # (Auto) 2.7, [place] # (Auto) 0.4, Eos # (Auto) 0.2, Baso # (Auto) 0.1 12/05/21 23:51: Sodium 139, Potassium 3.9, Chloride 105, Carbon Dioxide 28, Anion Gap 9.9, BUN 8, Creatinine 0.60, Estimated Creat Clear 175, Estimated GFR 123, Est GFR ( Amer) 149, Glucose 89, Calcium 9.1, Total Bilirubin < 0.1 L, AST 29, ALT 40, Alkaline Phosphatase 68, Total Protein 6.6, Albumin 3.6, Globulin 3.0, Albumin/Globulin Ratio 1.2, Amylase 63, Lipase 158 12/06/21 00:00: ESR 24 H 12/06/21 00:07: C-Reactive Protein 3.0, Procalcitonin < 0.030 Result diagrams: 12/05/21 23:51 12/05/21 23:51 Orders (Tests/Meds): ED MEDICATIONS Generic Name Dose Route Start Last Admin Trade Name Freq PRN Reason Stop Dose Admin Sodium Chloride 1,000 mls @ 999 mls/hr 12/05/21 23:45 Sod Chlor 0.9% 1000ml Bag IV 12/06/21 00:45 .Q1H1M RAAD Discontinued Medications Generic Name Dose Route Start Last Admin Trade Name Freq PRN Reason Stop Dose Admin Iopamidol 75 ml 12/06/21 01:08 12/06/21 01:08 Iopamidol-370 (76%);100ml Bottle IV 12/06/21 01:09 75 ml ONCE ONE Administration Sodium Chloride 10 ml 12/06/21 01:08 12/06/21 01:08 Sodium Chloride 0.9% 10ml Syr (Rad Only) IV 12/06/21 01:09 10 ml ONCE ONE Administration ORDERS Category Date Time Status Urine Culture Stat Micro 12/05/21 23:10 Received - CT Data CT Scan: Abdomen, Pelvis Time Received: 02:[address] Reviewed: Yes: I have viewed the radiologist's interpretation Preliminary Findings: Abnormal (ovarian cyst ) Medical Decision Narrative: has ovarian cyst with stable labs and exam Nausea/Vomiting/Diarrhea HPI - General Chief complaint: Abdominal Pain Stated complaint: cramping, and bleeding Time Seen by
--- NOTE | 2021-12-06 | CT_ITS ---
PROCEDURE INFORMATION: Exam: CT Abdomen And Pelvis With Contrast Exam date and time: 12/06/2021 12:56 AM Age: 26 years old Clinical indication: Abdominal pain; Localized; Lower; Prior surgery; Additional info: Abd. Pain TECHNIQUE: Imaging protocol: Computed tomography of the abdomen and pelvis with contrast. Radiation optimization: All CT scans at this facility use at least one of these dose optimization techniques: automated exposure control; mA and/or kV adjustment per patient size (includes targeted exams where dose is matched to clinical indication); or iterative reconstruction. Contrast material: ISOVUE; Contrast volume: 75 ml; Contrast route: IV; COMPARISON: CT ABDOMEN PELVIS WO CON 10/18/2020 2:02 AM FINDINGS: Liver: Tiny amount of pneumobilia in the right lobe. No mass. Gallbladder and bile ducts: Cholecystectomy. Pancreas: Normal. No ductal dilation. Spleen: Normal. No splenomegaly. Adrenal glands: Normal. No mass. Kidneys and ureters: Normal. No hydronephrosis. Stomach and bowel: Unremarkable. No obstruction. No mucosal thickening. Appendix: Normal appendix. Intraperitoneal space: Unremarkable. No free air. No significant fluid collection. Vasculature: Unremarkable. No abdominal aortic aneurysm. Lymph nodes: Unremarkable. No enlarged lymph nodes. Urinary bladder: Unremarkable as visualized. Reproductive: 3.7 cm left ovarian cyst. Bones/joints: Unremarkable. No acute fracture. Soft tissues: Unremarkable. IMPRESSION: 1. 3.7 cm left ovarian cyst. 2. No additional acute findings in the abdomen pelvis
[2021-12-06 00:02] LABS: RBC,Urine 50-100 #/hpf (0-3); WBC,Urine Occasional #/hpf (0-3)
[2021-12-06 00:03] LABS: Amorphous Sediment,Urine 2+ /lpf; Bacteria,Urine 2+ /lpf; Squamous Epithelial Cell,Urine Occasional #/hpf (0-5)
[2021-12-06 00:05] LABS: Coronavirus 19, PCR Not Detected (NotDetected); Influenza A, PCR Not Detected (NotDetected); Influenza B, PCR Not Detected (NotDetected)
[2021-12-06 00:07] LABS: Basophils # 0.1 K/mm3 (0-0.2); Basophils % 1.1 % (0.1-2.0); Eosinophils # 0.2 K/mm3 (0.0-0.4); Eosinophils % 3.3 % (0.1-12.0); Hematocrit 36.6 % (37.0-47.0); Hemoglobin 12.1 g/dL (12.2-16.2); Lymphocytes # 2.7 K/mm3 (0.7-4.5); Mean Corpuscular HGB Conc 33.1 g/dL (31.8-35.4); Mean Corpuscular Hemoglobin 27.8 pg (27.0-31.2); Mean Corpuscular Volume 84.2 fl (81-99); Mean Platelet Volume 9.5 fl (7.4-10.4); Monocytes # 0.4 K/mm3 (0.1-1.0); Monocytes % 5.9 % (1.7-9.3); Neutrophils # 3.1 K/mm3 (1.8-7.8); Neutrophils % 47.7 % (37.0-80.0); Platelet Count 254 K/mm3 (142-424); Red Blood Count 4.35 M/mm3 (4.20-5.40); Red Cell Distribution Width 14.1 % (11.5-17.5); White Blood Count 6.4 K/mm3 (4.8-10.8)
[2021-12-06 00:13] LABS: Alanine Aminotransferase 40 U/L (12-78); Albumin Level 3.6 g/dl (3.5-5.0); Albumin/Globulin Ratio 1.2 (1.1-1.8); Alkaline Phosphatase 68 U/L (38-126); Amylase 63 U/L (30-110); Anion Gap 9.9 mEq/L (5-15); Aspartate Amino Transferase 29 U/L (14-36); Blood Urea Nitrogen 8 mg/dl (7-17); Calcium 9.1 mg/dl (8.4-10.2); Carbon Dioxide 28 mmol/L (22.0-30.0); Chloride 105 mmol/L (98-107); Creatinine Clearance Estimated 175 mL/min (50-200); Estimated Glomerular Filt Rate 123 ml/min (>60); GFR (African American) 149 ML/MIN (>60); Glucose 89 mg/dl (74-100); Lipase 158 U/L (23-300); Potassium 3.9 mmoL/L (3.5-5.1); Sodium 139 mmol/L (136-145); Total Protein,Serum 6.6 g/dl (6.3-8.2)
[2021-12-06 00:16] LABS: Bilirubin,Total < 0.1 mg/dl (0.2-1.3)
[2021-12-06 00:51] LABS: Erythrocyte Sedimentation Rate 24 mm/hr (0-20)
[2021-12-06 00:53] LABS: Procalcitonin < 0.030 ng/mL (0.0-2.0)
[2021-12-06 02:20] VITALS: BP 111/73; PULSE 68; RESP 14; TEMP 36.7; O2SAT 100
== END 2021-12-06 02:23 | disposition home or self-care (01) ==
PROVIDERS: Emergency Provider Emergency Medicine
DX: N83.202 Unspecified ovarian cyst, left side (principal)
CPT/HCPCS: 74177; 80053; 81001; 81025; 82150; 83690; 84145; 85025; 85651; 86140; 87086; 99284; C9803; Q9967; U0003; U0005